=== PATIENT | male | born 1985 | race Caucasian/White ===

== ENCOUNTER 2025-08-23 20:10 | Emergency (ER) | payer BC, SELFPAY ==
[2025-08-23 20:12] VITALS: BP 144/82
--- NOTE | 2025-08-23 20:48 | ED.GENMED ---
History of Present Illness
General
Chief Complaint: Overdose Intentional
Time Seen by Provider: 08/23/25 20:34
History of Present Illness
History of Present Illness:
Patient presents to the emergency department intoxication. Patient's notes that she came home to find him around 4 PM seemingly intoxicated. She states that he had a history of alcohol problems and they have removed all alcohol from the
house. However, she recently had bought a bottle of rubbing alcohol. She found the bottle to be nearly empty and believes he may have drank around 14 ounces of 70% isopropyl alcohol. Patient is intoxicated and not able to provide reliable history
Past History
Social History
Tobacco: Non-smoker
Alcohol: Binge drinker
Drug: None
Personal:
Living: with family
Employment: Employed
Family History
Family History: Other (Noncontributory)
Phy Exam
Physical Exam
Physical Exam:
GENERAL APPEARANCE: no acute distress, laying comfortably on stretcher
EYES lids/conjunctiva normal
EARS/NOSE/THROAT Mucous membranes moist, uvula midline without oral pharyngeal erythema, exudate or swelling
HEAD/NECK normocephalic atraumatic, neck is supple.
RESPIRATORY respiratory effort normal, speaks in full sentences, no accessory muscle use. Lungs clear to auscultation without rhonchi, wheezes, rales
CARDIAC Regular rate and rhythm, no edema.
ABDOMINAL Soft, ND/NT. No pulsatile masses on exam, rebound tenderness, Bales sign or pain over Mcburney's point.
MUSCLES/EXTREMITIES No abnormal range of motion, no swelling.
SKIN Warm, pink and dry. No rashes
NEUROLOGICAL patient is tired but arousable to voice. Poor attention span. Moves all extremities. Cranial nerves intact.
PSYCH unable to assess at this time
Course
Orders/Labs/Results
Orders:
Orders
08/23/25 20:48
0.9% Sodium Chloride 1000 ml [Nss] 1,000 ml IV BOLUS
08/23/25 20:52
Acetaminophen Urgent
Alcohol Urgent
Complete Blood Count/With Diff Urgent
Comprehensive Metabolic Panel Urgent
Lactate Level [Lactic Acid] Urgent
PTT Urgent
Salicylate Urgent
Venous Blood Gas Urgent
%Oxygen/Room Air: room air
08/23/25 21:09
Electrocardiogram (*1) Urgent
Reason for Study: Other
Other Reason for Exam: overdose
08/23/25 22:45
Fentanyl, Urine Urgent
Urinalysis Reflex To Culture Urgent
Date Specimen was Collected: 08/23/25
Time Specimen was Collected: 22:43
Urine Drug Abuse Screen Urgent
Date Specimen was Collected: 08/23/25
Time Specimen was Collected: 22:44
Urine Microscopic Reflex Cult Urgent
Urine Culture Urgent
ADALBERTO Source: U
Specimen Description:
Date Specimen was Collected: 08/23/25
Time Specimen was Collected: 22:43
08/24/25 01:43
Crisis Consult Urgent
Reason for Consult: ingestion, depression
Abnormal Lab Results
08/23/25 08/23/25
20:52 22:45
RBC 4.63 L 10^6/uL
(4.70-6.10)
Absolute Neuts (auto) 7.9 H 10^3/uL
(1.4-6.5)
Absolute Lymphs (auto) 1.1 L 10^3/uL
(1.2-3.4)
Neutrophils % 82.8 H %
(42.2-75.2)
Lymphocytes % 12.0 L %
(20.5-51.1)
VBG pO2 78 H mmHg
(30-50)
BUN 5 L mg/dl
(9-20)
Creatinine 0.6 L mg/dL
(0.7-1.3)
Glucose 152 H mg/dl
(70-99)
Total Protein 8.3 H g/dl
(6.3-8.2)
Urine Ketones 3+ A
(Negative)
Urine Bacteria (Reflex) Moderate A
(Negative)
Urine Albumin (Reflex) 2+ A
(Neg - Trace)
Salicylates < 1.0 L mg/dl
(2.0-20.0)
Acetaminophen < 10 L ug/ml
(10-30)
Ur Amphetamines Screen Positive H
(Negative)
U Benzodiazepines Scrn Positive H
(Negative)
08/23/25 20:52
08/23/25 20:52
Vital Signs
Initial and Last Documented VS:
Initial Vital Signs
Temp Pulse Resp BP Pulse Ox
97.8 F 125 18 144/82 99
08/23/25 20:12 08/23/25 20:12 08/23/25 20:12 08/23/25 20:12 08/23/25 20:12
Last Documented Vital Signs
Temp Pulse Resp BP Pulse Ox
97.8 F 98 16 92/74 99
08/23/25 20:12 08/23/25 22:30 08/23/25 22:30 08/23/25 22:00 08/23/25 21:45
*Pulse Oximetry
SaO2: 99
Oxygen Mode of Delivery: Room air
Patient hypoxic: no
*Critical Care Note
Total Time (30-74mins, 75-104mins- exclusive of procedures): Not Applicable
Update Note
Update Note:
discussed with poison control Deonte
recommend - labs, ekg, supportive care, monitor until back to baseline. Can take longer than ethanol to metabolize
ED Attending Note
ED Attending Note
ED Attending Note:
Patient presents to the emergency department after ingestion of isopropyl alcohol. On arrival, patient intoxicated but arousable, hemodynamically stable and protecting airway. Ingestion labs drawn, resuscitation with IV fluids was performed. EKG
without any concerning features and normal intervals. Labs without increased anion gap. Urine with ketones likely byproduct of isopropyl alcohol metabolization. Labs otherwise are reassuring with negative salicylate and acetaminophen levels.
Negative alcohol level. Consulted poison control who recommended observation until sobriety. They recommend supportive management.
0215 patient is awake at this time and clinically sober. He ambulated to the bathroom with a steady gait. I consulted crisis to meet with him however he declined. He denied any suicidality. His will drive him home. Return precautions given
-
Portions of this chart may have been created with voice recognition software.� Occasional wrong word or��sound alike� substitutions may have occurred due to the inherent limitations of voice recognition software.
Discharge Plan
Departure
Patient Disposition: Home (Routine Discharge)
Date of Disposition: 08/24/25
Time of Disposition: 02:14
Patient with high blood pressure during this ER visit?: Yes
Discharge Problem:
Isopropyl alcohol poisoning
Instructions: Alcohol Use Disorder (DC)
Prescriptions:
No Action
fluoxetine [Prozac] 40 MG capsule
40 mg PO BID
trazodone 100 MG tablet
100 mg PO HS PRN (Reason: rest)
Patient Comments:
doesnt take regularly
hydroxyzine HCl 25 MG tablet
50 mg PO QIDPRN PRN (Reason: anxiety)
lorazepam [Ativan] 1 mg tablet
1 mg PO BID PRN (Reason: alcohol withdrawal) Qty: 5 0RF
gabapentin 600 mg Tablet
600 mg PO HS
dextroamphetamine sulfate 5 mg Tablet
5 mg PO DAILY
naltrexone 50 mg Tablet
50 mg PO DAILY
gabapentin 800 mg Tablet
800 mg PO TID
amphetamine sulfate 20 mg Tablet,Disintegrating
20 mg PO DAILY
amphetamine 10 mg Tablet, Ir - Er, Biphasic 24hr
10 mg PO BID
Referrals:
Dawit Pierre MD [Family Provider, Family Practice]
Activity Restrictions/Additional Instructions:
Return to ER if interested in detox, mental help treatment or if you are feeling like you want to hurt yourself/others.
Interventions
Interventions:
*Risk Screen - Suicide Last Done: 08/23/25 20:19
*General Assessment Last Done: 08/23/25 20:17
*ED- Fall Risk Assessment Last Done: 08/23/25 20:18
*ED COVID-19 Vaccine History Last Done: 08/23/25 20:18
*ED Influenza Vaccine History Last Done: 08/23/25 20:18
ED- Cardiac Assessment Last Done: 08/23/25 21:44
ED- Neurological Assessment Last Done: 08/23/25 21:44
ED-Psychological Assessment Last Done: 08/23/25 21:44
ED- Pulmonary Assessment Last Done: 08/23/25 21:44
Discharge Date and Time
Print Language: BENGALI
[2025-08-23 20:56] VITALS: BP 116/80
[2025-08-23] MEDS: NSS 1000 IV (20:58)
[2025-08-23 21:00] VITALS: BP 113/78
[2025-08-23 21:07] LABS: Venous Blood Gas B.E. -0.4 mmol/L (-4 to +4); Venous Blood Gas O2 Sat % 97.0 %
[2025-08-23 21:09] LABS: Hematocrit 39.8 % (39.0-52.0); Hemoglobin 13.2 g/dL (13.0-18.0); Mean Corp Hgb Conc. 33.2 g/dL (33.0-37.0); Mean Corpuscular Volume 86.0 fL (80.0-94.0); Nucleated Red Blood Cells % 0 % (-); Platelet Count 379 10^3/uL (130-400); Red Cell Dist. Width 13.2 % (11.5-14.5)
[2025-08-23 21:21] LABS: APTT 31.3 Sec (23.4-35.0)
[2025-08-23 21:29] LABS: Chloride 101 mmol/L (98-107); Potassium 4.1 mmol/L (3.5-5.1); Sodium 137 mmol/L (135-145)
[2025-08-23 21:31] LABS: ALT (SGPT) 19 U/L (0-50); AST (SGOT) 24 U/L (17-59); Acetaminophen < 10 ug/ml (10-30); Albumin 4.9 g/dl (3.5-5.0); Alkaline Phosphatase 56 U/L (38-126); Blood Urea Nitrogen 5 mg/dl (9-20); Calcium 9.0 mg/dl (8.4-10.2); Carbon Dioxide 25 mmol/L (22-30); Glucose 152 mg/dl (70-99); Salicylate < 1.0 mg/dl (2.0-20.0); Total Protein 8.3 g/dl (6.3-8.2); eGFR > 60.00
[2025-08-23 22:00] VITALS: BP 92/74
[2025-08-23 23:08] LABS: Urine Character Clear (Clear)
[2025-08-23 23:14] LABS: Urine Squamous Cell 0-2 /LPF (Few)
[2025-08-23 23:15] LABS: Urine Red Blood Cell 0-2 /HPF (0-2)
== END 2025-08-24 02:52 | disposition home or self-care (01) ==
LOC: EMR 20:10
PROVIDERS: EMERGENCY PHYSICIAN Emergency Medicine; FAMILY PHYSICIAN Family Medicine
DX: T51.2X1A Toxic effect of 2-Propanol, accidental (unintentional), initial encounter (principal); Y92.9 Unspecified place or not applicable; F19.10 Other psychoactive substance abuse, uncomplicated; F32.A Depression, unspecified
CPT/HCPCS: 99283; 80053; 80143; 80179; 80306; 80307; 81003; 81015; 82077; 82805; 83605; 85025; 85730; 87086; 93005